=== PATIENT | female | born 1990 | race Caucasian/White ===

== ENCOUNTER 2017-04-05 20:38 | Emergency (ER) | payer OTHER ==
--- NOTE | 2017-04-05 21:59 | EDM.PDOC ---
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 Patient is presently 7 weeks . She is a . Reportedly she developed vaginal bleeding yesterday. She was seen in the [facility] ER last night. Pelvic exam, labs and ultrasound were performed. She was diagnosed with a small subchorionic hemorrhage. Patient reports after leaving the ER last night the bleeding subsided some and she only had spotting today. She states around 1600 tonight she experienced a gush of blood. And bleed heavily for about 20 minutes. The bleeding improved but she continues to bleed heavier then she did yesterday. She denies any lightheadedness, dizziness, dysuria or urinary symptoms. Patient reports a "little bit" of lower abdominal and pelvic cramping. 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 Patient reports her blood type is A+. nuclear medicine chief technologist is Dr. Vizcarra in [place]. 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 history of subchorionic hemmorhage. first miscarriage was at 6 weeks, second at 10 weeks. Social & Family History - Family History Family Medical History: Noncontributory - Tobacco Use Smoking Status *Q: Never Smoker Second Hand Smoke Exposure: No - Caffeine Use Caffeine Use: Reports: Soda - Recreational Drug Use Recreational Drug Use: No ED ROS GENERAL - Review of Systems Review Of Systems: See Below Cardiovascular: Denies: Lightheadedness : Reports: Other (vaginal bleeding; minor pelvic cramping). Denies: Dysuria Neurological: Denies: Dizziness, Syncope ED EXAM - Physical Exam Exam: See Below Exam Limited By: No Limitations General Appearance: Alert, WD/WN, No Apparent Distress Respiratory/Chest: No Respiratory Distress, Lungs Clear, Normal Breath Sounds Cardiovascular: Normal Peripheral Pulses, Regular Rate, Rhythm, No Murmur GI/Abdominal Exam: Normal Bowel Sounds, Soft, Non-Tender (Female) Exam: Normal Bimanual Exam, Normal External Exam, Normal Speculum Exam, Vaginal Bleeding. No: Cervical Dilatation Heart Tones: Present (on transvaginal ultrasound) Heart Tones per Min: 160 Neurological: Alert, Oriented, Normal Cognition Psychiatric: Normal Affect, Normal Mood Skin Exam: Warm, Dry, Normal Color Course - Vital Signs Last Recorded V/S: Last Vital Signs Temp 35.9 C 04/05/17 20:47 Pulse 84 04/05/17 20:47 Resp 16 04/05/17 20:47 BP 112/81 04/05/17 20:47 Pulse Ox 10 L 04/05/17 20:47 Orthostatic Blood Pressure [ 109/84 Standing] Orthostatic Blood Pressure [ 109/78 Sitting] Orthostatic Blood Pressure [ 108/78 Supine] - Orders/Labs/Meds Labs: Laboratory Tests 04/05/17 04/05/17 04/05/17 Range/Units 21:30 21:30 21:30 WBC 5.84 (3.98-10.04) K/mm3 RBC 3.87 L (3.98-5.22) M/mm3 Hgb 11.4 (11.2-15.7) gm/L Hct 34.9 (34.1-44.9) % MCV 90.2 (79.4-94.8) fl MCH 29.5 (25.6-32.2) pg MCHC 32.7 (32.2-35.5) g/dl RDW Std Deviation 41.8 (36.4-46.3) fL Plt Count 255 (182-369) K/mm3 MPV 10.0 (9.4-12.3) fl Neut % (Auto) 54.6 (34.0-71.1) % Lymph % (Auto) 37.8 (19.3-51.7) % [place] % (Auto) 6.7 (4.7-12.5) % Eos % (Auto) 0.7 (0.7-5.8) Baso % (Auto) 0.2 (0.1-1.2) % Neut # (Auto) 3.19 (1.56-6.13) K/mm3 Lymph # (Auto) 2.21 (1.18-3.74) K/mm3 Kidder # (Auto) 0.39 H (0.24-0.36) K/mm3 Eos # (Auto) 0.04 (0.04-0.36) K/mm3 Baso # (Auto) 0.01 (0.01-0.08) K/mm3 HCG, Quant 50785.0 mIU/mL Urine Color (Yellow) Urine Appearance (Clear) Urine pH (5.0-8.0) Ur Specific [place] (1.005-1.030) Urine Protein (Negative) Urine Glucose (UA) (Negative) Urine Ketones (Negative) Urine Occult Blood (Negative) Urine Nitrite (Negative) Urine Bilirubin (Negative) Urine Urobilinogen (0.2-1.0) Ur Leukocyte Esterase (Negative) Urine RBC (0-5) /hpf Urine WBC (0-5) /hpf Ur Epithelial Cells (0-5) /hpf Urine Bacteria (FEW) /hpf Urine Mucus (FEW) /hpf Blood Type A POSITIVE 04/05/17 Range/Units 21:41 WBC (3.98-10.04) K/mm3 RBC (3.98-5.22) M/mm3 Hgb (11.2-15.7) gm/L Hct (34.1-44.9) % MCV (79.4-94.8) fl MCH (25.6-32.2) pg MCHC (32.2-35.5) g/dl RDW Std Deviation (36.4-46.3) fL Plt Count (182-369) K/mm3 MPV (9.4-12.3) fl Neut % (Auto) (34.0-71.1) % Lymph % (Auto) (19.3-51.7) % Kidder % (Auto) (4.7-12.5) % Eos % (Auto) (0.7-5.8) Baso % (Auto) (0.1-1.2) % Neut # (Auto) (1.56-6.13) K/mm3 Lymph # (Auto) (1.18-3.74) K/mm3 Kidder # (Auto) (0.24-0.36) K/mm3 Eos # (Auto) (0.04-0.36) K/mm3 Baso # (Auto) (0.01-0.08) K/mm3 HCG, Quant mIU/mL Urine Color [place] H (Yellow) Urine Appearance Slt cloudy H (Clear) Urine pH 7.5 (5.0-8.0) Ur Specific [place] 1.020 (1.005-1.030) Urine Protein 1+ H (Negative) Urine Glucose (UA) Negative (Negative) Urine Ketones Negative (Negative) Urine Occult Blood 2+ H (Negative) Urine Nitrite Negative (Negative) Urine Bilirubin Negative (Negative) Urine Urobilinogen 0.2 (0.2-1.0) Ur Leukocyte Esterase Negative (Negative) Urine RBC >100 H (0-5) /hpf Urine WBC 0-5 (0-5) /hpf Ur Epithelial Cells 0-5 (0-5) /hpf Urine Bacteria Not seen (FEW) /hpf Urine Mucus Not seen (FEW) /hpf Blood Type - Radiology Interpretation Free Text/Narrative:: transvaginal ultrasound impression per [facility]: 1. single intrauterine gestation with an estimated gestational age of 8 weeks and 1 day. 2. Normal cardiac activity at 161 bpm. 3. Subchorionic hemorrhage about 6.6 cm in greatest diameter. 4. Bicornate uterus. 5 .Based on u/s JOSH is 8-2-18 - Re-Assessments/Exams Free Text/Narrative Re-Assessment/Exam: 04/05/17 23:13 We were able to get labs and reports from [facility] from last night;s ER visit[place] [address]. Hgb 12.1 and hct 36.3. Blood type A+. Ultrasound report " Single viable intrauterine with an estimated gestational age of 7 weeks, 3 days by crown-rump length. Small subchorionic hematoma. Consider close obstetric and sonographic follow-up. " Labs returned. I discussed the case with Dr. Weir, ob applications developer, drop in HCG. This is possible that there is a lab discrepancy, however, it is an ominous sign for the . Dr. Dominique recommends starting on iron tabs and close follow-up with her Ob. She is to return to the ER immediately if her symptoms change or worsen. I discussed the labs, ultrasound report and conversation with Dr. Weir with the patient. Continue with current plan. Nothing vaginally. Follow-up with Ob Saturday. State iron tabs. Return immediately is symptoms change or worsen. Expresses understanding. Discharge instructions as documented. Departure - Departure Time of Disposition: 23:20 Disposition: Home, Self-Care 01 Condition: Fair Clinical Impression: Threatened - Discharge Information Prescriptions: Ferrous Sulfate 325 mg PO BID #60 tablet Instructions: Threatened Miscarriage Referrals: PCP,None [Primary Care Provider] - Forms: ED Department Discharge Additional Instructions: Start the iron supplementation 1 tablet twice a day. Recommend taking this with vitamin C rich foods such as oranges, strawberries etc. Follow-up with your OB provider on Saturday. Make sure you are drinking plenty of fluids. [id number] Tylenol as needed for pain relief. Please return to the ER immediately if you experience any lightheadedness, dizziness, syncope or any hemorrhaging.
--- NOTE | 2017-04-09 08:00 | US ---
First trimester obstetrical ultrasound: Multiple real-time images were obtained transvaginally. Comparison: No prior study for current . Dates: LMP: LMP given as 02/03/17, JOSH 11/10/17, gestational age 8 weeks 5 days Current ultrasound: JOSH 11/14/17, gestational age 8 weeks 1 day Possible bicornuate uterus is noted. Single intrauterine gestational sac is seen. Subchorionic hemorrhage is identified measuring up to 6.6 cm. pole and yolk sac are seen. Maternal adnexa appear within normal limits. Measurements: Gestational sac: 3.07 cm - 8 weeks 1 day [place]-rump length: 1.72 cm - 8 weeks 1 day Heart rate: 161 bpm Impression: 1. Single intrauterine gestation. Dates as noted above. 2. Subchorionic hemorrhage measuring up to 6.6 cm. 3. Other incidental findings as noted above. Diagnostic code #3 I agree with preliminary report issued by [email or web address] ([facility] report finalized on 04/06/17, 12:01 AM Central Time)
== END 2017-04-05 22:37 | disposition home or self-care (01) ==
LOC: JD.ED 20:38
DX: O20.0 Threatened abortion (principal); Z79.899 Other long term (current) drug therapy; Z3A.01 Less than 8 weeks gestation of pregnancy
CPT/HCPCS: 36415; 76817; 76817-26; 81001; 84702; 85025; 86900; 86901; 99283; 99284-25